=== PATIENT | male | born 1995 | race Two or more races ===

== ENCOUNTER 2017-07-21 02:53 | Emergency (ER) | payer SELFPAY ==
[~2017-07-21] VITALS: Ht 162.6 cm; Wt 63.5 kg
[2017-07-21] MEDS ORDERED: NKM (03:03)
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
[2017-07-21] MEDS ORDERED: Tetanus/Diptheria/Pertussis Vaccine 0.5ml Syr IM ONE (03:15)
[2017-07-21 03:20] VITALS: BP 114/56
[2017-07-21] MEDS ORDERED: Betadine 4oz Bottle TOPIC ONE (04:51)
[2017-07-21 05:00] VITALS: BP 123/60
[2017-07-21] MEDS ORDERED: BACITRACIN ZIN1 EACH TOPIC (05:19)
[2017-07-21] MEDS ORDERED: ACETAMINOPHEN500 M3 ORAL (05:19)
[2017-07-21] MEDS ORDERED: Bacitracin Oint UD TOPIC ONE (05:30)
[2017-07-21 06:00] VITALS: BP 125/68
[2017-07-21 06:10] VITALS: BP 125/68
--- NOTE | 2017-07-21 09:46 | Diagnostic Imaging Report ---
Indication: Neck pain. Technique: Continuous helical imaging of the cervical spine was obtained transaxially from the skull base to the upper thoracic spine. 2-D coronal and sagittal reformatted images were obtained. Automatic Exposure Control was utilized. Total Dose length Product (DLP): 269.[address] Dose Index Volume (CTDIvol): 12.94 mGy Comparison: None Findings: There is no evidence of an acute fracture or malalignment. Atlantoaxial alignment appears normal. Height and configuration of the vertebral bodies and intervertebral discs are within normal limits. Uncovertebral joints and facets are unremarkable. There is no soft tissue swelling. Impression: Negative cervical spine CT [facility] has communicated the preliminary results to the Emergency Department. Their findings are largely concordant with this report. The CT scanner at [facility] is accredited by the [employer] and the scans are performed using dose optimization techniques as appropriate to a performed exam including Automatic Exposure control.
--- NOTE | 2017-07-21 10:07 | Diagnostic Imaging Report ---
Indication: Altered mental status Technique: Contiguous 5 mm thick transaxial imaging of the head obtained in a Siem[employer] Sensation [address] scanner. Soft tissue and bone windows generated. Automatic Exposure Control was utilized. Total Dose length Product (DLP): 1404.[address] Dose Index Volume (CTDIvol): 70.38 mGy Comparison: none Findings: The size and configuration of the cortical sulci, basal cisterns, and ventricles are within normal limits for age. There is no mass effect, midline shift, or edema identified. There is no evidence of acute hemorrhage or abnormal intra-axial or extra-axial fluid collections. There is right periorbital soft tissue swelling present consistent with a contusion injury. Osseous structures are unremarkable. Impression: No mass effect, edema or acute bleed. Right periorbital contusion The CT scanner at [facility] is accredited by the [employer] and the scans are performed using dose optimization techniques as appropriate to a performed exam including Automatic Exposure control.
== END 2017-07-21 06:10 | disposition home or self-care (01) ==
LOC: EDBD 02:53 → EMR 03:11
DX: S09.90XA Unspecified injury of head, initial encounter (principal); Z23 Encounter for immunization; Y09 Assault by unspecified means
CPT/HCPCS: 70450; 72125; 90471; 90715; 99284; A4246